=== PATIENT | male | born 1960 ===

== ENCOUNTER 2024-04-11 05:20 | Day surgery (SDC) | payer BC ==
[2024-04-08 11:40] VITALS: BMI 44.6
[2024-04-11 09:01] VITALS: RESP 19
[2024-04-11 09:03] VITALS: BP 121/67; PULSE 73; TEMP 97.8
== END 2024-04-11 13:50 | disposition home or self-care (01) ==
LOC: JASU-ENDO 05:20
PROVIDERS: ATTEND Student in an Organized Health Care Education/Training Program
PROC: 0DJD8ZZ Inspection of Lower Intestinal Tract, Via Natural or Artificial Opening Endoscopic (ICD-10-PCS; principal; 2024-04-11 08:00)
DX: K57.30 Diverticulosis of large intestine without perforation or abscess without bleeding (principal); R19.5 Other fecal abnormalities; I10 Essential (primary) hypertension
CPT/HCPCS: 82962